=== PATIENT | male | born 1965 | race African-American/Black ===

== ENCOUNTER 2018-10-25 14:50 | Emergency (ER) | payer OTHER, SELFPAY ==
--- OUTSIDE RECORDS SUMMARY | 2018-10-25 14:52 | XMS REPORT | Continuity of Care Document ---
:1965 Author Organization Interface Problems Problem Status Onset Classification Date Comments Source Date Reported Corrosion of 04/05/20 08/12/2018 [facility] cornea and Medical conjunctival sac, Center right eye, initial encounter Chemical injury 01/24/20 08/12/2018 [facility] of eye [address] [place] [address] Center OBJECT IN EYE Active 01/23/[address] OBJECT IN EYE Active 01/23/[address] FOREIGN BODY IN Active 01/23/20 [facility] EYE [address] [place] [address] Corrosion of left 08/11/[address] [facility] eye and adnexa, [facility] part unspecified, initial encounter Toxic effect of 08/12/[address] [facility] corrosive alkalis [facility] and alkali-like [place] substances, Medical accidental , Center initial encounter Type 2 diabetes 08/12/2018 [facility] mellitus without Medical complications Center Medications Medication Details Route Status Patient Ordering Order Source Instructions Provider Date Ofloxacin 3 2 drp, No Longer [place] MG/ML Ophthalmic RIGHT EYE, Active 018 Medical Solution QID, X 7 Center day, # 5 ml, 0 Refill(s) Vitamin C 1000 1,000 mg=1 Active [place] mg oral tablet tab, PO, 018 Medical Daily, # 30 Center tab, 0 Refill(s) doxycycline 100 mg=1 No Longer [place] hyclate 100 MG cap, PO, Active 018 Medical Oral Capsule Q12H, X 10 Center day, # 20 cap, 0 Refill(s) prednisolone 1 drp, No Longer [place] acetate 10 MG/ML RIGHT EYE, Active 018 Medical Ophthalmic QID, X 10 Center Suspension [Pred day, # 5 Forte] ml, 0 Refill(s) 0.5 ML 0.5 mL, No Longer Bordetella Route: IM, Active 018 [facility] pertussis Drug Form: City filamentous SUSP, kg, hemagglutinin ONCE, STAT, vaccine, Start date: inactivated 0.01 01/22/18 MG/ML / 21:28:00 Bordetella CDT, Stop pertussis date: fimbriae 2/3 01/22/18 vaccine, 21:28:00 inactivated 0.01 CDTNotes: MG/ML / (Tdap ) For Bordetella Adolecent pertussis and Adult pertactin use For IM vaccine, Use. Same inactivated as: Adacel 0.006 MG/ML / (Tdap) Bordetella pertussis toxoid vacci Irrigation w/ 1,000 mL, No Longer Normal Saline Route: Each Active 018 [facility] Eye, Drug Form: SOLN, kg, ONCE, STAT, Start date: 01/22/18 21:28:00 CDT, Stop date: 01/22/18 21:28:00 CDT fluorescein 1 strip, No Longer ophthalmic 1 mg Route: LEFT Active 018 [facility] test EYE, ONCE, City Drug form: STRIP, Start date: 01/22/18 21:28:00 CDT, Stop date: 01/22/18 21:28:00 CDTNotes: Same as: FUL-VU Proparacaine 1 drp, No Longer hydrochloride 5 Route: LEFT Active 018 [facility] MG/ML Ophthalmic EYE, ONCE, [facility] Solution Drug form: SOLN, Start date: 01/22/18 21:28:00 CDT, Stop date: 01/22/18 21:28:00 CDTNotes: (Same as: Proparacain e) Sodium Chloride 1,000 mL, Inactive 0.9% (Bolus) IV 1000 ml/hr, [facility] Infuse [facility] Over: 1 hr, Route: IV, 1,000, Drug form: INJ, ONCE, Priority: STAT, kg, Start date: 01/22/18 21:28:00 CDT, Stop date: 01/22/18 21:28:00 CDT Irrigation w/ 1,000 mL, No Longer Normal Saline Route: Each Active 018 [facility] Eye, Drug Form: SOLN, kg, ONCE, Start date: 01/22/18 21:26:00 CDT, Stop date: 01/22/18 21:26:00 CDT Valium 5 mg, 1 Inactive tab, Route: 018 [facility] PO, Drug City form: TAB, ONCE, kg, Priority: STAT, Start date: 01/22/18 21:20:00 CDT, Stop date: 01/22/18 21:20:00 CDTNotes: (Same as: Valium) Acetaminophen 1 tab, Inactive 325 MG / Route: PO, 018 [facility] Hydrocodone Drug Form: City Bitartrate 5 MG TAB, kg, Oral Tablet ONCE, STAT, Start date: 01/22/18 21:15:00 CDT, Stop date: 01/22/18 21:15:00 CDTNotes: (Same as: [place] 325/5) Do not exceed 4gm/day of acetaminoph en. Allergies, Adverse Reactions, Alerts Substance Category Reaction Severity Reaction Status Date Comments Source type Reported Immunizations Immunization Date Given Site Status Last Updated Comments Source Results Order Results Value Reference Date Interpretation Comments Source Name Range Vital Signs Vital Sign Value Date Comments Source Temperature Oral (F) 98.4 F 01/23/2018 [facility] Heart Rate 86 01/23/2018 [facility] Respitory Rate 20 01/23/2018 [facility] Systolic (mm Hg) 146 01/23/2018 [facility] Diastolic (mm Hg) 80 01/23/2018 [facility] Respitory Rate 20 01/23/2018 [facility] Heart Rate 86 01/23/2018 [facility] Systolic (mm Hg) 163 01/23/2018 [facility] Diastolic (mm Hg) 104 01/23/2018 [facility] Heart Rate 88 01/23/2018 [facility] Respitory Rate 18 01/23/2018 [facility] Systolic (mm Hg) 160 01/23/2018 [facility] Diastolic (mm Hg) 100 01/23/2018 [facility] Heart Rate 84 01/23/2018 [facility] Systolic (mm Hg) 167 01/23/2018 [facility] Diastolic (mm Hg) 105 01/23/2018 [facility] Temperature Oral (F) 98.4 F 01/23/2018 [facility] Respitory Rate 18 01/23/2018 [facility] Encounters Location Location Encounter Encounter Reason Attending ADM DC Status Source Details Type Number For Provider Date Date [facility] [id number] Lucas 01/23 01/23 Pablo Guzman [facility] [id number] Franky Madera 01/23 01/23 NÉSTOR Shah /2017 [facility] Procedures Procedure Code Date Perfomer Comments Source
--- OUTSIDE RECORDS SUMMARY | 2018-10-25 14:53 | XMS REPORT | Summary of Care ---
:1965 Author Organization [facility] Address [address] [place] [id number]- Encounter HQ Marlene(FIN) [id number] Date(s): 01/22/18 - 01/22/18 [place] [address]- Encounter Diagnosis Toxic effect of corrosive alkalis and alkali-like substances, accidental ( unintentional), initial encounter (Final) - 01/27/18 Corrosion of left eye and adnexa, part unspecified, initial encounter (Final) - Discharge Disposition: Acute Care Attending Physician: Lucas Guzman MD Vital Signs Most recent to oldest 1 2 3 [Reference Range]: Temperature Oral [96.4-99.1 98.4 DegF DegF] (01/22/18 8:37 PM) Blood Pressure [90-140/60-90 163/104 mmHg 160/100 mmHg 167/105 mmHg mmHg] *HI* *HI* *HI* (01/22/18 10:00 PM) (01/22/18 9:00 PM) (01/22/18 8:37 PM) Respiratory Rate [14-20 BRMIN] 20 BRMIN 18 BRMIN 18 BRMIN (01/22/18 10:00 PM) (01/22/18 9:00 PM) (01/22/18 8:37 PM) Peripheral Pulse Rate [60-100 86 bpm 88 bpm 84 bpm bpm] (01/22/18 10:00 PM) (01/22/18 9:00 PM) (01/22/18 8:37 PM) Problem List No data available for this section Allergies, Adverse Reactions, Alerts Substance Reaction Severity Status NKDA Active Medications acetaminophen-hydrocodone 325 mg-5 mg oral tablet 1 tab, Route: PO, Drug Form: TAB, kg, ONCE, STAT, Start date: 01/22/18 21:15:00 CDT, Stop date: 01/22/18 21:15:00 CDT Notes: (Same as: [place] 325/5) Do not exceed 4gm/day of acetaminophen. Start Date: 01/22/18 Stop Date: 01/22/18 Status: Completedfluorescein ophthalmic 1 mg test 1 strip, Route: LEFT EYE, ONCE, Drug form: STRIP, Start date: 01/22/18 21:28:00 CDT, Stop date: 01/22/18 21:28:00 CDT Notes: Same as: FUL-VU Start Date: 01/22/18 Stop Date: 01/23/18 Status: CompletedIrrigation w/ Normal Saline 1,000 mL, Route: Each Affected Eye, Drug Form: SOLN, kg, ONCE, Start date: 01/22 21:26:00 CDT, Stop date: 01/22/18 21:26:00 CDT Start Date: 01/22/18 Stop Date: 01/23/18 Status: CompletedIrrigation w/ Normal Saline 1,000 mL, Route: Each Affected Eye, Drug Form: SOLN, kg, ONCE, STAT, Start date : 01/22/18 21:28:00 CDT, Stop date: 01/22/18 21:28:00 CDT Start Date: 01/22/18 Stop Date: 02/01/18 Status: Discontinuedproparacaine ophthalmic 0.5% solution 1 drp, Route: LEFT EYE, ONCE, Drug form: SOLN, Start date: 01/22/18 21:28:00 CDT , Stop date: 01/22/18 21:28:00 CDT Notes: (Same as: Proparacaine) Start Date: 01/22/18 Stop Date: 01/23/18 Status: CompletedSodium Chloride 0.9% (Bolus) IV 1,000 mL, 1000 ml/hr, Infuse Over: 1 hr, Route: IV, 1,000, Drug form: INJ, ONCE , Priority: STAT, kg,Start date: 01/22/18 21:28:00 CDT, Stop date: 01/22/18 21: 28:00 CDT Start Date: 01/22/18 Stop Date: 01/22/18 Status: Completedtetanus/diphth/pertussis (Tdap) adult/adol 5 units-2 units- 15.5 mcg/0.5 mL intramuscular suspension 0.5 mL, Route: IM, Drug Form: SUSP, kg, ONCE, STAT, Start date: 01/22/18 21:28: 00 CDT, Stop date: 01/22/18 21:28:00 CDT Notes: (Tdap ) For Adolecent and Adult use For IM Use. Same as: Adacel (Tdap) Start Date: 01/22/18 Stop Date: 02/01/18 Status: DiscontinuedValium 5 mg, 1 tab, Route: PO, Drug form: TAB, ONCE, kg, Priority: STAT, Start date: 21:20:00 CDT,Stop date: 01/22/18 21:20:00 CDT Notes: (Same as: Valium) Start Date: 01/22/18 Stop Date: 01/22/18 Status: Completed Results No data available for this section Immunizations No data available for this section Procedures No data available for this section Social History Social History Type Response Smoking Status Unknown if ever smoked; Exposure to Tobacco Smoke Unable to obtain; Cigarette Smoking Last 365 Days Unable to obtain; Reg Smoking Cessation Counseling No entered on: 01/22/18 Assessment and Plan No data available for this section
--- OUTSIDE RECORDS SUMMARY | 2018-10-25 14:53 | XMS REPORT | Summary of Care ---
:1965 Author Organization [facility] Address [address] [place] [id number]- Encounter HQ Violetta_carissa(FIN) [id number] Date(s): 01/22/18 - 01/23/[address] Professional Services provided by [facility] [place] [address]- Encounter Diagnosis Chemical injury of eye (Discharge Diagnosis) - 01/23/18 Corrosion of cornea and conjunctival sac, right eye, initial encounter (Final) - 04/04/18 Toxic effect of corrosive alkalis and alkali-like substances, accidental ( unintentional), initial encounter (Final) - Type 2 diabetes mellitus without complications (Final) - Discharge Disposition: Home or Self Care Attending Physician: Franky Madera MD Vital Signs Most recent to oldest [Reference Range]: 1 Temperature Oral [96.4-99.1 DegF] 98.4 DegF (01/22/18 11:18 PM) Blood Pressure [90-140/60-90 mmHg] 146/80 mmHg *HI* (01/22/18 11:18 PM) Respiratory Rate [14-20 BRMIN] 20 BRMIN (01/22/18 11:18 PM) Peripheral Pulse Rate [60-100 bpm] 86 bpm (01/22/18 11:18 PM) Problem List No data available for this section Allergies, Adverse Reactions, Alerts Substance Reaction Severity Status NKDA Active Medications doxycycline hyclate 100 mg oral capsule 100 mg=1 cap, PO, Q12H, X 10 day, # 20 cap, 0 Refill(s) Start Date: 01/23/18 Stop Date: 02/02/18 Status: Completedofloxacin ophthalmic 0.3% solution 2 drp, RIGHT EYE, QID, X 7 day, # 5 ml, 0 Refill(s) Start Date: 01/23/18 Stop Date: 01/30/18 Status: CompletedPred Forte 1% ophthalmic suspension 1 drp, RIGHT EYE, QID, X 10 day, # 5 ml, 0 Refill(s) Start Date: 01/23/18 Stop Date: 02/02/18 Status: CompletedVitamin C 1000 mg oral tablet 1,000 mg=1 tab, PO, Daily, # 30 tab, 0 Refill(s) Start Date: 01/23/18 Status: Ordered Results No data available for this section Immunizations No data available for this section Procedures No data available for this section Social History Social History Type Response Smoking Status Unknown if ever smoked; Exposure to Tobacco Smoke Unable to obtain; Cigarette Smoking Last 365 Days Unable to obtain; Reg Smoking Cessation Counseling No entered on: 01/22/18 Assessment and Plan Extracted from: Title: Ophthalmology Consult Note Author: Watson Altamirano MD Date: Ophthalmology Consultation Note Patient Name: Santy Silvestre MR#: [id number] Room: ED Trauma [facility]an Requesting Team: ED Date of Consult: 01/23/2018 Consulting Attending: Wilfredo Vallecillo MD Consulting Resident: Watson Altamirano MD Reason for Consult: Chemical burn to eye History of Present Illness: Pt is a 52 yo AAM with PMH of lifestyle controlled DM who presents to the ED after getting caustic soda onto his face at work due to a valve malfunction, with majority into right eye earlier today. He i mmediately washed both eyes with a large amount of water. He then presented to an outside ED and was transferred to . Here, pH was found to be slightly above 7 in right eye and he was continued to be flushed in the right eye with NS. Review of Systems: Constitutional Symptoms: no fever, weight changes. Eyes: as above Ears, Nose, Mouth, Throat: no rhinorrhea, hearing changes, or oral lesions. Cardiovascular: no chest pain Respiratory: No cough or shortness of breath. Gastrointestinal: no nausea, vomiting, diarrhea Genitourinary: no changes in UOP. Hematopoietic/Lymphatic: no easy bruising, LAD. Musculoskeletal: no generalized pain. Integumentary: no rash Neurological: no headache, weakness. Psychiatry: no behavioral change. Allergy/Immune system: No allergies. Past Ocular History: no previous diagnoses Past Medical History: no prior diagnosis Past Surgical History: no prior diagnosis Social History: No cigarette, alcohol, or drug use. Family History: No known ocular disease. Allergies: NKDA Medications (8) Active Scheduled Meds: None Unscheduled Meds: None PRN Meds: None One Time Meds (8): 01/22/18 (Completed) Sodium Chloride 0.9% IV (Sodium Chloride 0.9% (Bolus) IV ) 1,000 mL IV ONCE 1000 ml/hr 01/22/18 (Completed) acetaminophen-hydrocodone (acetaminophen-hydrocodone 325 mg-5 mg oral tablet) 1 tab PO ONCE 01/22/18 (Completed) diazepam (Valium) 5 mg PO ONCE 01/22/18 (Ordered) fluorescein ophthalmic (fluorescein ophthalmic 1 mg test) 1 strip LEFT EYE ONCE 01/22/18 (Ordered) proparacaine ophthalmic (proparacaine ophthalmic 0.5% solution) 1 drp LEFT EYE ONCE 01/22/18 (Ordered) sodium chloride (Irrigation w/ Normal Saline) 1,000 mL Each Affected Eye ONCE 01/22/18 (Ordered) sodium chloride (Irrigation w/ Normal Saline) 1,000 mL Each Affected Eye ONCE 01/22/18 (Ordered) tetanus/diphth/pertuss (Tdap) adult/adol (tetanus/diphth/ pertussis (Tdap) adult/adol 5 units-2 units-15.5 mcg/0.5 mL intramuscular suspension) 0.5 mL IM ONCE Continuous Infusions: None Eye Medication: none Examination: Neuro/MS: Patient is alert and oriented to person, place, and time. Mental status is grossly normal. Visual Acuity (without correction) Tested on a Near Card: Right Eye: 20/40 PH 20/25 Left Eye: 20/30 PH 20/20 Confrontation Visual Field: Full both eyes. Extraocular motility: Full both eyes. Pupils: 2->1 mm in both eyes with normal direct and consensual response. No afferent pupillary defect noted. Intraocular Pressure: Symmetric and normal to palpation both eyes. Right eye 14 , Left eye 15 using the Tonopen. External: Within normal limits both eyes. SLIT LAMP: Lids/Lashes/Lacrimals: Mild upper and lower lid edema right eye. Within normal limits left eye Conjunctiva/Sclera: Right eye with 2+ hyperemia throughout with slightly more clear area superiorly. 1 mm lisamine green uptake at 7 o'clock 3 mm from limbus and 1mm uptake at limbus at 8o'clock. LE with 1+ hyperemia, no lisamine green uptake Cornea: Clear both eyes. Right: Fluorescein uptake right eye in wedge from 6 - 830 to inferior paracentral. Left: No uptake Anterior Chamber: right: 2+ flare Left: Deep and quiet Iris: Round and reactive both eyes. Lens: Clear both eyes. Dilated Fundus Exam (Both eyes dilated with tropicamide 1% @0130): (65093) Optic Nerve: pink, sharp margins, flat both eyes C:D Ratio: 0.2 both eyes Posterior Segment: macula, vessels, periphery within normal limits both eyes Imaging: None Procedures Performed: None Diagnoses/Recommendation: 1. Alkali burn, Right eye (T26.11XA) 2. 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 Diabetes mellitus without retinopathy (E11.9) Return precautions reviewed Please call if any changes develop. Please call for an appointment to follow-up with [facility] in 1 week. (Located: [address] [place] [address]. [facility] Floor, ) Watson Altamirano M.D. Ophthalmology Resident PGY-2 Pager #: [phone] I carefully reviewed the medical record, discussed the case with the resident, and agree with the assessment and plan. Wilfredo Vallecillo M.D.
--- NOTE | 2018-10-25 16:35 | ER ---
Nurse's Notes [facility] Name: Santy Silvestre Jr Age: 53 yrs Sex: Male : 1965 Arrival Date: 10/25/2018 Time: 14:53 Bed 18 Private MD: Diagnosis: Muscle spasm;Torticollis Presentation: 10/25 14:56 Presenting complaint: Patient states: "I slept wrong and my neck hurt yesterday morning lp1 but it's even worse today"; Pain on movement, radiates to right shoulder blade. Transition of care: patient was not received from another setting of care. Onset of symptoms was October 25, 2018. Risk Assessment: Do you want to hurt yourself or someone else? Patient reports no desire to harm self or others. Care prior to arrival: None. 14:56 Method Of Arrival: Ambulatory lp1 14:56 Acuity: RICKY 4 lp1 14:58 Initial Sepsis Screen: Does the patient meet any 2 criteria? No. Patient's initial lp1 sepsis screen is negative. Does the patient have a suspected source of infection? No. Patient's initial sepsis screen is negative. Note Took Motrin about 1 hour ago. Historical: - Allergies: 14:58 No Known Allergies; lp1 - Home Meds: 14:58 None [Active]; lp1 - PMHx: 14:58 Diabetes - NIDDM; lp1 - PSHx: 14:58 Knee surgery; shoulder surgery; lp1 - Immunization history:: Adult Immunizations up to date. - Social history:: Smoking status: Patient/guardian denies using tobacco. - Ebola Screening: : No symptoms or risks identified at this time. - Family history:: not pertinent. - Hospitalizations: : No recent hospitalization is reported. Screenin:00 Abuse screen: Denies threats or abuse. Denies injuries from another. Nutritional lp1 screening: No deficits noted. Tuberculosis screening: No symptoms or risk factors identified. Fall Risk None identified. Assessment: 15:30 General: Appears in no apparent distress. uncomfortable, Behavior is calm, cooperative, ph appropriate for age, Denies fever, feeling ill. Pain: Complains of pain in right posterior aspect of neck and right lateral aspect of neck Pain radiates to right trapezius. Neuro: Level of Consciousness is awake, alert, obeys commands, Oriented to person, place, time, situation, Denies paresthesias numbness. Cardiovascular: Capillary refill < 3 seconds in bilateral fingers Patient's skin is warm and dry. Respiratory: Airway is patent Respiratory effort is even, unlabored, Respiratory pattern is regular, symmetrical. GI: No signs and/or symptoms were reported involving the gastrointestinal system. Derm: Skin is intact, is healthy with good turgor, Skin is pink, warm \\T\\ dry. Musculoskeletal: Circulation, motion, and sensation intact. Range of motion: intact in all extremities. Vital Signs: 14:58 BP 155 / 89; Pulse 67; Resp 18; Temp 99(TE); Pulse Ox 96% on R/A; Weight 104.33 kg (R); lp1 Height 5 ft. 6 in. (167.64 cm); Pain 8/10; 14:58 Body Mass Index 37.12 (104.33 kg, 167.64 cm) lp1 ED Course: 14:53 Patient arrived in ED. rg4 14:57 Triage completed. lp1 14:57 Arm band placed on right wrist. lp1 15:10 Lexi Rowan RN is Primary Nurse. ph 15:16 Kennedy Rawls MD is Attending Physician. rn 15:30 Patient has correct armband on for positive identification. Bed in low position. Call ph light in reach. Side rails up X 1. 15:30 No provider procedures requiring assistance completed. Patient did not have IV access ph during this emergency room visit. Administered Medications: No medications were administered Outcome: 15:26 Discharge ordered by . rn 15:36 Patient left the ED. ph 15:36 Discharged to home ambulatory. ph 15:36 Condition: good 15:36 Discharge instructions given to patient, Instructed on discharge instructions, follow up and referral plans. medication usage, Demonstrated understanding of instructions, follow-up care, medications, Prescriptions given X 2. Signatures: Kennedy Rawls MD MD rn Pena, Laura, RN RN lp1 Lexi Rowan RN RN ph Garcia, Rubi rg4 Corrections: (The following items were deleted from the chart) 15:00 14:58 Pulse 67bpm; Resp 18bpm; Pulse Ox 96% RA; Temp 99F Temporal; 104.33 kg Reported; lp1 Height 5 ft. 6 in.; BMI: 37.1; Pain 8/10; lp1
--- NOTE | 2018-10-25 16:35 | EDPHYS ---
Physician Documentation [facility] Name: Santy Silvestre Jr Age: 53 yrs Sex: Male : 1965 Arrival Date: 10/25/2018 Time: 14:53 Bed 18 Private MD: ED Physician Kennedy Rawls HPI: 10/25 15:21 This 53 yrs old Black Male presents to ER via Ambulatory with complaints of Neck Pain, rn <24hrs Old. 15:21 This 53 yrs old Black Male presents to ER via Ambulatory with complaints of Neck Pain, rn <24hrs Old. 15:21 The patient or guardian complains of pain, that is acute. The symptoms are located on rn the right lateral neck. Onset: The symptoms/episode began/occurred 2 day(s) ago. Context: The problem was sustained at home, The neck injury/problem resulted from sleeping funny. The pain radiates to the right shoulder. Modifying factors: The symptoms are alleviated by nothing. the symptoms are aggravated by movement. Severity of symptoms: At their worst the symptoms were moderate, in the emergency department the symptoms are unchanged. The patient has not experienced similar symptoms in the past. Reports right lateral neck pain, began yesterday, reports for unknown reason sleeping with vertical pillow orientation, woke up with right neck pain that shoots to right shoulder, no trauma, no weakness/numbness of arms/legs, no chest pain, hurts to move neck, no fever/vomiting.. Historical: - Allergies: 14:58 No Known Allergies; lp1 - Home Meds: 14:58 None [Active]; lp1 - PMHx: 14:58 Diabetes - NIDDM; lp1 - PSHx: 14:58 Knee surgery; shoulder surgery; lp1 - Immunization history:: Adult Immunizations up to date. - Social history:: Smoking status: Patient/guardian denies using tobacco. - Ebola Screening: : No symptoms or risks identified at this time. - Family history:: not pertinent. - Hospitalizations: : No recent hospitalization is reported. ROS: 15:21 Constitutional: Negative for fever, chills, and weight loss, Eyes: Negative for injury, rn pain, redness, and discharge, Neck: + right lateral neck pain, negative for swelling or trauma Cardiovascular: Negative for chest pain, palpitations, and edema, Respiratory: Negative for shortness of breath, cough, wheezing, and pleuritic chest pain, Abdomen/GI: Negative for abdominal pain, nausea, vomiting, diarrhea, and constipation, MS/Extremity: Negative for injury and deformity, Skin: Negative for injury, rash, and discoloration, Neuro: Negative for headache, weakness, numbness, tingling, and seizure. Exam: 15:21 Constitutional: This is a well developed, well nourished patient who is awake, alert, rn and in no acute distress. Legs crossed and on phone. Head/Face: Normocephalic, atraumatic. Eyes: Pupils equal round and reactive to light, extra-ocular motions intact. Lids and lashes normal. Conjunctiva and sclera are non-icteric and not injected. Cornea within normal limits. Periorbital areas with no swelling, redness, or edema. Neck: Trachea midline, no thyromegaly or masses palpated, and no cervical lymphadenopathy. No meningismus, + tender right pericervical region and right trapezius, no swelling. MS/ Extremity: Pulses equal, no cyanosis. Neurovascular intact. Full, normal range of motion. Equal circumference. Vital Signs: 14:58 BP 155 / 89; Pulse 67; Resp 18; Temp 99(TE); Pulse Ox 96% on R/A; Weight 104.33 kg (R); lp1 Height 5 ft. 6 in. (167.64 cm); Pain 8/10; 14:58 Body Mass Index 37.12 (104.33 kg, 167.64 cm) lp1 MDM: 15:16 Patient medically screened. rn 15:21 Differential diagnosis: arthritis, cervical strain, torticollis. Data reviewed: vital rn signs, nurses notes, and as a result, I will discharge patient. Counseling: I had a detailed discussion with the patient and/or guardian regarding: the historical points, exam findings, and any diagnostic results supporting the discharge/admit diagnosis, the need for outpatient follow up, to return to the emergency department if symptoms worsen or persist or if there are any questions or concerns that arise at home. Special discussion: I discussed with the patient/guardian in detail that at this point there is no indication for admission to the hospital. It is understood, however, that if the symptoms persist or worsen the patient needs to return immediately for re-evaluation. Administered Medications: No medications were administered Disposition: 10/25/18 15:26 Discharged to Home. Impression: Muscle spasm, Torticollis. - Condition is Stable. - Discharge Instructions: Acute Torticollis, Adult, Neck Exercises. - Prescriptions for Ultram 50 mg Oral Tablet - take 1 tablet by ORAL route every 6 hours As needed; 15 tablet. Cyclobenzaprine 10 mg Oral Tablet - take 1 tablet by ORAL route every 8 hours As needed; 20 tablet. - Medication Reconciliation Form, Thank You Letter, Antibiotic Education, Prescription Opioid Use, Work release form form. - Follow up: Private Physician; When: As needed; Reason: Recheck today's complaints, Re-evaluation by your physician. - Problem is new. - Symptoms have improved. Signatures: Kennedy Rawls MD MD rn EscobarMelani RN RN lp1 Lexi Rowan RN RN ph Corrections: (The following items were deleted from the chart) 15:36 15:26 10/25/2018 15:26 Discharged to Home. Impression: Muscle spasm; Torticollis. ph Condition is Stable. Forms are Medication Reconciliation Form, Thank You Letter, Antibiotic Education, Prescription Opioid Use. Follow up: Private Physician; When: As needed; Reason: Recheck today's complaints, Re-evaluation by your physician. Problem is new. Symptoms have improved. rn
== END 2018-10-25 15:36 | disposition home or self-care (01) ==
LOC: ER 14:50
DX: M62.838 Other muscle spasm (principal); M43.6 Torticollis; E11.9 Type 2 diabetes mellitus without complications
CPT/HCPCS: 99282

== ENCOUNTER 2021-08-24 11:16 | Observation (INO) | payer SELFPAY ==
--- OUTSIDE RECORDS SUMMARY | 2021-08-24 11:19 | XMS REPORT | Continuity of Care Document ---
:1965 Author Organization [facility] t Address [address] [place] [address] Care Team Providers Name Role Phone Unavailable Unavailable Unavailable Problems This patient has no known problems. Allergies, Adverse Reactions, Alerts This patient has no known allergies or adverse reactions. Medications This patient has no known medications. Procedures This patient has no known procedures. Encounters Start End Encounter Admission Attending Care Care Encounter Source Date/Time Date/Time Type Type Clinicians Facility Department ID 2018-01-22 2018-01-22 Emergency E [facility] [id number] 20:34:00 20:34:00 vinay mclean [facility] Results This patient has no known results.
[2021-08-24 11:48] LABS: Absolute Lymphocytes (CBC) 1.1 K/uL (0.7-4.9); Hematocrit 40.2 % (39.6-49.0); Lymphocytes % 25.9 % (15.3-44.8); MPV 9.1 fL (7.6-11.3)
[2021-08-24 11:58] LABS: BUN Blood Urea Nitrogen 9 mg/dL (7-18); Bicarbonate 26 mmol/L (21-32); Glucose Level 111 mg/dL (74-106); Potassium 4.5 mmol/L (3.5-5.1); Sodium Level 138 mmol/L (136-145); Troponin High Sensitivity 14.1 pg/mL (<58.9)
--- NOTE | 2021-08-24 12:31 | ER ---
Nurse's Notes [facility] Name: Santy Silvestre Jr Age: 56 yrs Sex: Male : 1965 Arrival Date: 08/24/2021 Time: 11:18 Bed 26 Private MD: Diagnosis: Chest pain, unspecified Presentation: 08/24 11:18 Chief complaint: Patient states: was up on lift at [employer] , got SOB and had some iw chest pain, got himself down and pain came back when he was walking, EMS gave 2 sprays of Nitro, relieved pain and SOB. Coronavirus screen: At this time, the client does not indicate any symptoms associated with coronavirus-19. Ebola Screen: Patient negative for fever greater than or equal to 101.5 degrees Fahrenheit, and additional compatible Ebola Virus Disease symptoms Patient denies exposure to infectious person. Patient denies travel to an Ebola-affected area in the 21 days before illness onset. No symptoms or risks identified at this time. Initial Sepsis Screen: Does the patient meet any 2 criteria? No. Patient's initial sepsis screen is negative. Does the patient have a suspected source of infection? No. Patient's initial sepsis screen is negative. Risk Assessment: Do you want to hurt yourself or someone else? Patient reports no desire to harm self or others. Onset of symptoms was August 24, 2021. Care prior to arrival: IV initiated. 20 GA, in the left antecubital area. 11:18 Method Of Arrival: EMS: [facility] 11:18 Acuity: RICKY 3 11:21 Care prior to arrival: Medication(s) given: ASA, 81 mg, x 4, Nitroglycerin, x 2. iw Triage Assessment: 12:09 General: Appears in no apparent distress. comfortable, Behavior is calm, cooperative, bp appropriate for age. Pain: Complains of pain in chest. EENT: No deficits noted. Neuro: No deficits noted. Cardiovascular: Rhythm is sinus rhythm. Respiratory: No deficits noted. GI: No signs and/or symptoms were reported involving the gastrointestinal system. : No signs and/or symptoms were reported regarding the genitourinary system. Derm: No deficits noted. Musculoskeletal: No deficits noted. Historical: - Allergies: 11:20 No Known Allergies; iw - Home Meds: 11:20 None [Active]; iw - PMHx: 11:20 Diabetes - NIDDM; iw Screenin:10 Abuse screen: Denies threats or abuse. Denies injuries from another. Nutritional bp screening: No deficits noted. Tuberculosis screening: No symptoms or risk factors identified. Fall Risk None identified. Assessment: 11:29 Reassessment: pt seen by Dr. Pickering on EMS stretcher, protocol orders placed, EKG iw NSR, pt denies CP at this time. General: Appears in no apparent distress. Behavior is calm, cooperative. Pain: Denies pain. Neuro: Level of Consciousness is awake, alert, obeys commands. 12:30 Reassessment: ADMIT INITIATED. bp 13:30 Reassessment: No changes from previously documented assessment. Patient and/or family bp updated on plan of care and expected duration. Pain level reassessed. 14:30 Reassessment: ADMIT IN PROCESS. bp 15:11 Reassessment: PT STATES ACUTE INCREASE CP, PROVIDER NOTIFIED. bp Vital Signs: 11:18 BP 145 / 86; Pulse 78; Resp 16 S; Pulse Ox 96% on R/A; Weight 108.86 kg; Height 5 ft. 6 bp in. (167.64 cm); 12:30 BP 125 / 88; Pulse 71; Resp 18; Pulse Ox 97% ; bp 13:30 BP 125 / 82; Pulse 70; Resp 18; Pulse Ox 99% ; bp 14:30 BP 126 / 82; Pulse 71; Resp 19; Pulse Ox 97% ; bp 15:30 BP 123 / 87; Pulse 78; Resp 25; Pulse Ox 94% ; bp 11:18 Body Mass Index 38.74 (108.86 kg, 167.64 cm) bp ED Course: 11:18 Patient arrived in ED. iw 11:20 Triage completed. iw 11:20 Arm band placed on. iw 11:26 EKG done, by ED staff, reviewed by Baudilio Pickering MD. em1 11:29 Maintain EMS IV. Dressing intact. Good blood return noted. Site clean \T\ dry. Gauge \T\ iw site: 20 LAC. 12:08 [facility]C [facility]. la1 12:08 Baudilio Pickering MD is Attending Physician. la1 12:08 Manuel Marcus, MARIAH is Primary Nurse. bp 12:10 Patient has correct armband on for positive identification. Bed in low position. Call bp light in reach. Side rails up X2. service promoter salesperson on. Pulse ox on. NIBP on. 12:10 Patient maintains SpO2 saturation greater than 95% on room air. bp 12:30 Keila Kuntson MD is Hospitalizing Provider. la1 13:12 XRAY Chest (1 view) In Process Unspecified. EDMS 15:16 EKG done, by ED staff, reviewed by Avel GALEANO. 3 Administered Medications: 15:11 Drug: Nitroglycerin 0.4 mg Route: Sublingual; bp 15:26 Follow up: Response: Pain is decreased bp 15:20 Drug: morphine 2 mg Route: IVP; Site: left antecubital; bp 15:26 Follow up: Response: No adverse reaction; Pain is decreased bp 15:22 CANCELLED (Other Intervention Used): Lovenox (enoxaparin) 1 mg/kg Sub-Q once la1 15:30 Drug: Heparin ([place]-Bolus No thrombolytic) - HEParin 60 units/kg {Co-Signature: aa5 bp (Bibi Zambrano RN).} Route: IVP; Site: left antecubital; 15:50 Follow up: Response: No adverse reaction bp 15:30 Drug: Heparin ([place] Drip) 12 units/kg/hr - (HEParin 11942 units, D5W 500 ml) bp {Co-Signature: aa5 (Bibi Zambrano RN).} Route: IV; Rate: calculated rate; Site: left antecubital; 15:40 Drug: morphine 2 mg Route: IVP; Site: left antecubital; bp 15:50 Follow up: Response: Pain is decreased bp 17:29 Drug: GI Cocktail without - (Maalox Suspension 30 ml, Lidocaine Liquid 2 % 15 bp ml) Route: PO; 19:49 Follow up: Response: No adverse reaction lg3 Outcome: 12:30 Decision to Hospitalize by Provider. la1 08/25 11:04 Patient left the ED. jd3 Signatures: Dispatcher [employer] EDMS Bryanna Ochoa RN RN iw Martinez, Eric 1 Avel Botello FNP-C FNP-Felicity Mchugh 3 Sincere Quiros RN RN jManuel Reyna RN RN bp Gibson, Lacie, MARIAH RN lg3 Bibi Zambrano RN aa5 Corrections: (The following items were deleted from the chart) 08/24 15:25 11:18 BP 145 / 86; Pulse 78bpm; Resp 16bpm; Spontaneous; Pulse Ox 96% RA; iw bp
--- NOTE | 2021-08-24 12:31 | EDPHYS ---
Physician Documentation [facility] Name: Santy Silvestre Jr Age: 56 yrs Sex: Male : 1965 Arrival Date: 08/24/2021 Time: 11:18 Bed 26 Private MD: ED Physician Baudilio Pickering HPI: 08/24 12:26 This 56 yrs old Black Male presents to ER via EMS with complaints of Chest Pain, la1 Shortness Of Breath. 12:26 Onset: The symptoms/episode began/occurred just prior to arrival. Associated signs and la1 symptoms: Pertinent positives: chest pain, SOB, lightheadedness. Modifying factors: The patient symptoms are alleviated by nitro, the patient symptoms are aggravated by exertion. The patient has not experienced similar symptoms in the past. The patient has not recently seen a physician. Patient reports he was at work when he had onset of chest tightness associated with shortness of breath, pain was better when resting but worse when he began walking again, was evaluated by EMS and given nitroglycerin and aspirin, patient reports significant relief with nitroglycerin. Denies previous cardiac evaluation does have family history of CAD.. Historical: - Allergies: 11:20 No Known Allergies; iw - Home Meds: 11:20 None [Active]; iw - PMHx: 11:20 Diabetes - NIDDM; iw ROS: 12:28 Constitutional: Negative for fever, chills, and weight loss, Eyes: Negative for injury, la1 pain, redness, and discharge, ENT: Negative for injury, pain, and discharge, Neck: Negative for injury, pain, and swelling. 12:28 Abdomen/GI: Negative for abdominal pain, nausea, vomiting, diarrhea, and constipation, Back: Negative for injury and pain, MS/Extremity: Negative for injury and deformity, Skin: Negative for injury, rash, and discoloration, Neuro: Negative for headache, weakness, numbness, tingling, and seizure. 12:28 Cardiovascular: Positive for chest pain. 12:28 Respiratory: Positive for shortness of breath. Exam: 12:28 Constitutional: This is a well developed, well nourished patient who is awake, alert, la1 and in no acute distress. Head/Face: Normocephalic, atraumatic. Chest/axilla: Normal chest wall appearance and motion. Nontender with no deformity. No lesions are appreciated. Cardiovascular: Regular rate and rhythm with a normal S1 and S2. No gallops, murmurs, or rubs. Normal PMI, no JVD. No pulse deficits. Respiratory: Lungs have equal breath sounds bilaterally, clear to auscultation and percussion. Abdomen/GI: Soft, non-tender, with normal bowel sounds. No distension or tympany. No guarding or rebound. No evidence of tenderness throughout. Skin: Warm, dry with normal turgor. Normal color with no rashes, no lesions, and no evidence of cellulitis. MS/ Extremity: Pulses equal, no cyanosis. Neurovascular intact. Full, normal range of motion. Neuro: Awake and alert, GCS 15, oriented to person, place, time, and situation. Vital Signs: 11:18 BP 145 / 86; Pulse 78; Resp 16 S; Pulse Ox 96% on R/A; Weight 108.86 kg; Height 5 ft. 6 bp in. (167.64 cm); 12:30 BP 125 / 88; Pulse 71; Resp 18; Pulse Ox 97% ; bp 13:30 BP 125 / 82; Pulse 70; Resp 18; Pulse Ox 99% ; bp 14:30 BP 126 / 82; Pulse 71; Resp 19; Pulse Ox 97% ; bp 15:30 BP 123 / 87; Pulse 78; Resp 25; Pulse Ox 94% ; bp 11:18 Body Mass Index 38.74 (108.86 kg, 167.64 cm) bp MDM: 12:08 Patient medically screened. la1 12:29 Data reviewed: vital signs, nurses notes, EKG, radiologic studies, I have discussed the la1 patient's presentation/case with the attending Emergency Department Physician; and as a result, I will admit patient. Data interpreted: Pulse oximetry: is not applicable for this patient encounter. on is 96 %. Interpretation: normal. Counseling: I had a detailed discussion with the patient and/or guardian regarding: the historical points, exam findings, and any diagnostic results supporting the discharge/admit diagnosis, lab results, radiology results, the need for further work-up and treatment in the hospital. Special discussion:. 08/24 11:21 Order name: Basic Metabolic Panel; Complete Time: 12:08 iw 08/24 11:21 Order name: CBC with Diff; Complete Time: 12:08 iw 08/24 11:21 Order name: Troponin HS; Complete Time: 12:08 iw 08/24 12:18 Order name: SARS-COV-2 RT PCR (Document "Date of Onset" if Symptomatic); Complete Time: iw 16:08/24 15:27 Order name: Basic Metabolic Panel EDMS 08/24 15:27 Order name: Basic Metabolic Panel EDMS 08/24 15:27 Order name: CBC with Automated Diff EDMS 08/24 15:27 Order name: CBC with Automated Diff EDMS 08/24 15:27 Order name: Lipid Profile EDMS 08/24 15:27 Order name: Lipid Profile EDMS 08/24 15:27 Order name: Troponin High Sensitivity; Complete Time: 22:03 EDMS 08/24 15:27 Order name: Troponin High Sensitivity EDMS 08/24 15:27 Order name: Troponin High Sensitivity EDMS 08/24 15:27 Order name: Troponin High Sensitivity EDMS 08/24 11:21 Order name: XRAY Chest (1 view); Complete Time: 15:08 iw 08/24 11:21 Order name: EKG; Complete Time: 11: iw 08/24 11:21 Order name: Cardiac monitoring; Complete Time: 12:09 iw 08/24 14:27 Order name: Diet Heart Healthy; Complete Time: 14:28 iw 08/24 15:08 Order name: EKG; Complete Time: 15:09 ryder 08/24 15:27 Order name: CONS Physician Consult EDAL 08/24 15:27 Order name: Echo with Doppler EDMS 08/24 15:27 Order name: EKG Electrocardiogram EDAL 08/24 15:27 Order name: EKG Electrocardiogram EDAL 08/24 11:21 Order name: EKG - Nurse/Tech; Complete Time: 11:26 iw 08/24 11:21 Order name: IV Saline Lock; Complete Time: 11: iw 08/24 11:21 Order name: Labs collected and sent; Complete Time: 11: iw 08/24 11:21 Order name: O2 Per Protocol; Complete Time: 12:09 iw 08/24 11:21 Order name: O2 Sat Monitoring; Complete Time: 12:09 iw 08/24 15:08 Order name: EKG - Nurse/Tech; Complete Time: 15:14 ryder Administered Medications: 15:11 Drug: Nitroglycerin 0.4 mg Route: Sublingual; bp 15:26 Follow up: Response: Pain is decreased bp 15:20 Drug: morphine 2 mg Route: IVP; Site: left antecubital; bp 15:26 Follow up: Response: No adverse reaction; Pain is decreased bp 15:22 CANCELLED (Other Intervention Used): Lovenox (enoxaparin) 1 mg/kg Sub-Q once la1 15:30 Drug: Heparin ([place]-Bolus No thrombolytic) - HEParin 60 units/kg {Co-Signature: aa5 bp (Bibi Zambrano RN).} Route: IVP; Site: left antecubital; 15:50 Follow up: Response: No adverse reaction bp 15:30 Drug: Heparin ([place] Drip) 12 units/kg/hr - (HEParin 79939 units, D5W 500 ml) bp {Co-Signature: aa5 (Bibi Zambrano RN).} Route: IV; Rate: calculated rate; Site: left antecubital; 15:40 Drug: morphine 2 mg Route: IVP; Site: left antecubital; bp 15:50 Follow up: Response: Pain is decreased bp 17:29 Drug: GI Cocktail without - (Maalox Suspension 30 ml, Lidocaine Liquid 2 % 15 bp ml) Route: PO; 19:49 Follow up: Response: No adverse reaction lg3 Disposition: 08/26 07:53 Co-signature as Attending Physician, Baudilio Pickering MD I agree with the assessment and ryder plan of care. Disposition Summary: 08/24/21 12:30 Hospitalization Ordered Hospitalization Status: Observation la1 Provider: Keila Knutson laTorito Condition: Stable la1 Problem: new la1 Symptoms: have improved la1 Bed/Room Type: Standard la1 Location: Telemetry/MedSurg (observation)(08/25/21 10:40) em1 Room Assignment: 218(08/25/21 10:40) em1 Diagnosis - Chest pain, unspecified la1 Forms: - Medication Reconciliation Form la1 - SBAR form la1 Signatures: Dispatcher [employer] Baudilio Hoyos MD MD cha Williams, Irene, RN Wai Morgan em1 Avel Botello, CHRISTINA-C POLYGRAPH EXAMINER-Cla1 Manuel Marcus RN RN bp Ilene Duran RN lg3 Bibi Zambrano RN aa5 Corrections: (The following items were deleted from the chart) 08/24 15:22 15:18 Lovenox (enoxaparin) 1 mg/kg Sub-Q once ordered. la1 la1 16:49 12:30 Telemetry/MedSurg (observation) la 16:49 12:30 la1 iw 08/25 10:40 08/24 16:[address] [facility] ER HOLD iw em1 08/25 10:40 08/24 16:49 ERHOLD- iw em1
--- NOTE | 2021-08-24 13:19 | RAD REPORT ---
EXAM DESCRIPTION: Loren Single View08/24/2021 1:09 pm CLINICAL HISTORY: Chest pain COMPARISON: none FINDINGS: The lungs appear clear of acute infiltrate. The heart is borderline enlarged IMPRESSION: No acute abnormalities displayed
[2021-08-24] MEDS ORDERED: NITROGLYCERIN 0.4 MG/TAB SL ONE (15:13)
[2021-08-24] MEDS ORDERED: MORPHINE 4 MG/ML SYR IV PRN (15:21)
[2021-08-24] MEDS ORDERED: ACETAMINOPHEN 500 MG TAB PO PRN (15:21)
[2021-08-24] MEDS ORDERED: ALPRAZOLAM 0.25 MG TABLET PO PRN (15:21)
[2021-08-24] MEDS ORDERED: MORPHINE 2 MG/ML SYR ONE ×2 (15:23→15:42)
[2021-08-24] MEDS ORDERED: HEPARIN 5000 UNIT/ML 1 ML VIAL ONE (15:41)
[2021-08-24] MEDS ORDERED: HEPARIN/D5W 25,000 UNIT/500 ML BAG IV ONE (15:42)
[2021-08-24] MEDS ORDERED: LIDOCAINE VISCOUS 2% SOLN 15 ML UDC ONE (17:27)
[2021-08-24] MEDS ORDERED: MAGNES/ALUMIN/SIMET 30ML UCUP ONE (17:27)
[2021-08-24] MEDS ORDERED: ONDANSETRON 4 MG/2 ML VIAL ONE (19:00)
[2021-08-24] MEDS ORDERED: METOPROLOL TAR 50 MG TAB ONE (21:16)
[2021-08-24] MEDS: METOPROLOL TAR 50 MG TAB PO SCH (21:19)
[2021-08-25 03:38] LABS: Absolute Lymphocytes (CBC) 1.5 K/uL (0.7-4.9); Hematocrit 40.2 % (39.6-49.0); Lymphocytes % 15.8 % (15.3-44.8); MPV 9.4 fL (7.6-11.3); RBC Red Blood Cell Count 5.18 M/uL (4.33-5.43)
[2021-08-25 03:49] LABS: BUN Blood Urea Nitrogen 8 mg/dL (7-18); Bicarbonate 28 mmol/L (21-32); Glucose Level 99 mg/dL (74-106); HDL Cholesterol 46 mg/dL (40-60); LDL Cholesterol, Calculated 116 mg/dL (<130); Potassium 4.9 mmol/L (3.5-5.1); Sodium Level 138 mmol/L (136-145); Troponin High Sensitivity 11.1 pg/mL (<58.9)
[2021-08-25 04:59] VITALS: O2SAT 98
--- NOTE | 2021-08-25 07:04 | P.HP ---
Certification for Inpatient Patient admitted to: Observation With expected LOS: <2 Midnights Patient will require the following post-hospital care: None Practitioner: I am a practitioner with admitting privileges, knowledge of patient current condition, hospital course, and medical plan of care. Services: Services provided to patient in accordance with Admission requirements found in Title 42 Section 412.3 of the Code of Federal Regulations Patient History Date of Service: 08/24/21 Reason for admission: Rule out acute coronary syndrome History of Present Illness: Patient is a 56-year-old gentleman who came into the hospital with chest discomfort. Pain was mainly in the epigastric and sternal region. There was no radiation to the chest pain. Patient states that he did not have diaphoresis. He was not nauseated. No vomiting. Patient was not short of breath. The states that they had a large meal and they were both left with a lot of gas. She believes he is bloated. However, he does have a strong family history of cardiac disease. Patient has hyperlipidemia and diabetes. His blood sugar is poorly controlled. He states he takes cholesterol medicine. He will be admitted to the hospital for further evaluation. Allergies No Known Allergies Allergy (Unverified 08/24/21 16:29) Home Medications: NK [No Home Meds] 08/24/21 - Past Medical/Surgical History Has patient received pneumonia vaccine in the past: No Diabetic: Yes -: diabetes -: Hyperlipidemia Past Surgical History: Patient denies surgical history - Family History Father Family History: Reviewed- Non-Contributory - Social History Smoking Status: Unknown if ever smoked Alcohol use: No CD- Drugs: No Place of Residence: Home Review of Systems 10-point ROS is otherwise unremarkable Physical Examination - Vital Signs Temperature: 98.6 F Blood Pressure: 121/75 Pulse: 81 Respirations: 19 Pulse Ox (%): 98 - Physical Exam General: Alert, In no apparent distress, Oriented x3 HEENT: Atraumatic, PERRLA, Mucous membr. moist/pink, EOMI, Sclerae nonicteric Neck: Supple, 2+ carotid pulse no bruit, No LAD, Without JVD or thyroid abnormality Respiratory: Clear to auscultation bilaterally, Normal air movement Cardiovascular: Regular rate/rhythm, Normal S1 S2, No murmurs Gastrointestinal: Normal bowel sounds, Soft and benign, Non-distended, No tenderness Musculoskeletal: No clubbing, No swelling, No tenderness Integumentary: No rashes Neurological: Normal gait, Normal speech, Normal strength at 5/5 x4 extr, Normal tone, Sensation intact, Cranial nerves 3-12 intact, Normal affect Lymphatics: No axilla or inguinal lymphadenopathy - Studies Laboratory Data (last 24 hrs) 08/24/21 11:25: WBC 4.1 L, Hgb 13.2 L, Hct 40.2, Plt Count 274 08/24/21 11:25: Sodium 138, Potassium 4.5, BUN 9, Creatinine 1.00, Glucose 111 H Assessment & Plan - Problems (Diagnosis) (1) Chest pain, rule out acute myocardial infarction Current Visit: Yes Status: Acute (2) Diabetes Current Visit: Yes Status: Acute (3) Dyslipidemia Current Visit: Yes Status: Acute - Plan -High-sensitivity troponin -Cardiology consultation -Echocardiogram and stress test per cardiology recommendation -Repeat EKG -Work-up for other etiologies of cardiac chest pain if troponins remain negative -Lipid profile -Gas Generator Operator regarding modifying risk for cardiac disease Discharge Plan: Home Plan to discharge in: 24 Hours - Advance Directives Does patient have a Living Will: No Does patient have a Durable POA for Healthcare: No - Code Status/Comfort Care Code Status Assessed: Yes Code Status: Full Code Critical Care: No Time Spent Managing PTS Care (In Minutes): 45
--- NOTE | 2021-08-25 07:19 | P.DS ---
Discharge Date: 08/25/21 Disposition: ROUTINE DISCHARGE Discharge Condition: GOOD Reason for Admission: Rule out acute coronary syndrome - Problems (1) Chest pain, rule out acute myocardial infarction Current Visit: Yes Status: Acute (2) Diabetes Current Visit: Yes Status: Acute (3) Dyslipidemia Current Visit: Yes Status: Acute Brief History of Present Illness: Patient is a 56-year-old gentleman who came into the hospital with chest dis comfort. Pain was mainly in the epigastric and sternal region. There was no radiation to the chest pain. Patient states that he did not have diaphoresis. He was not nauseated. No vomiting. Patient was not short of breath. The states that they had a large meal and they were both left with a lot of gas. She believes he is bloated. However, he does have a strong family history of cardiac disease. Patient has hyperlipidemia and diabetes. His blood sugar is poorly controlled. He states he takes cholesterol medicine. He will be admitted to the hospital for further evaluation. Vital Signs/Physical Exam: Temp Pulse Resp BP Pulse Ox 98.6 F 81 19 121/75 98 08/25/21 07:05 08/25/21 07:05 08/25/21 07:05 08/25/21 07:05 08/25/21 07:05 General: Alert, In no apparent distress, Oriented x3 Laboratory Data at Discharge: WBC 9.7 K/uL (4.3-10.9) D 08/25/21 02:54 Hgb 13.4 g/dL (13.6-17.9) L 08/25/21 02:54 Hct 40.2 % (39.6-49.0) 08/25/21 02:54 Plt Count 265 K/uL (152-406) 08/25/21 02:54 Sodium 138 mmol/L (136-145) 08/25/21 02:54 Potassium 4.9 mmol/L (3.5-5.1) 08/25/21 02:54 BUN 8 mg/dL (7-18) 08/25/21 02:54 Creatinine 0.86 mg/dL (0.55-1.3) 08/25/21 02:54 Glucose 99 mg/dL (74-106) 08/25/21 02:54 Triglycerides 203 mg/dL (<150) H 08/25/21 02:54 Cholesterol 203 mg/dL (<200) H 08/25/21 02:54 HDL Cholesterol 46 mg/dL (40-60) 08/25/21 02:54 Cholesterol/HDL Ratio 4.41 08/25/21 02:54 Home Medications: Metoprolol Tartrate [Lopressor*] 50 mg PO BID #60 tab 08/25/21 New Medications: Metoprolol Tartrate [Lopressor*] 50 mg PO BID #60 tab Physician Discharge Instructions: -DC IV and DC home -Follow-up with PCP in 1 to 2 weeks -Follow-up with Cardiology in 1 to 2 weeks -Please call Dr. Knutson at [phone] if any questions regarding hospital stay -Please call nursing station at [phone] if any nursing or medication questions -Return to the emergency room if symptoms worsen Diet: AHA Activity: Ad larry Followup: NONE,NONE [Primary Care Provider] - Time spent managing pt's care (in minutes): 35
--- NOTE | 2021-08-25 07:55 | EKG ---
Test Date: 2021-08-24 Test Time: 15:15:47 Network Development Coordinator: HELADIO MEASUREMENT RESULTS: Intervals: Rate: 83 GA: 158 QRSD: 100 QT: 354 QTc: 415 [place]: P: 58 GA: 158 QRS: 33 T: -29 INTERPRETIVE STATEMENTS: Normal sinus rhythm T wave abnormality, consider inferior ischemia Abnormal ECG No previous ECG available for comparison Electronically Signed On 08-25-21 07:54:31 CDT by Wilfred Fuentes
[2021-08-25] MEDS ORDERED: METOPROLOL TAR 50 MG TAB ONE (08:42)
[2021-08-25] MEDS ORDERED: ASPIRIN EC 81 MG TAB PO ONE (08:42)
[2021-08-25] MEDS ORDERED: ENOXAPARIN 40 MG/0.4 ML SQ ONE (08:43)
[2021-08-25] MEDS ORDERED: REGADENOSON 0.4 MG/5 ML SYR IV ONE (08:54)
[2021-08-25] MEDS ORDERED: ENOXAPARIN 40 MG/0.4 ML SQ SCH (09:00)
[2021-08-25] MEDS ORDERED: ASPIRIN EC 81 MG TAB PO SCH (09:00)
[2021-08-25] MEDS: METOPROLOL TAR 50 MG TAB PO SCH (09:00)
--- NOTE | 2021-08-25 11:37 | RAD REPORT ---
EXAM DESCRIPTION: NM - Rest Stress Cardiac Imaging - 08/25/2021 11:32 am CLINICAL HISTORY: CP Chest pain. COMPARISON: No comparisons TECHNIQUE: The patient was administered approximately 10mCi of Tc 99m Sestamibi prior to resting SPE CT imaging of the heart. The patient was then administered approximately 30 mCi of Tc 99m Sestamibi f ollowing exercise or pharmacologic stress. Multiplanar SPECT images were reviewed. FINDINGS: No stress induced ischemic defect is seen to suggest stress induced ischemia. No fixed def ect is seen to suggest hibernating myocardium or scarred myocardium. The end diastolic volume is 105 ml, the end systolic volume is 46 ml, and the ejection fraction is 56 %. IMPRESSION: No stress induced ischemia.
--- NOTE | 2021-08-25 13:30 | CON ---
Date of Consultation: 08/25/2021 Reason For Consultation: Atypical chest pain. History Of Present Illness: Mr. Silvestre is a 56-year-old black male with no past medical history. He developed chest pressure in the 24 hours. He was lightheaded and dizzy. Denied any PND, orthopnea, pedal edema, palpitations, or syncope. Denied any fever or chills. Past Medical History: Negative. Allergies: NONE. Medications: At home are none. Family History: Negative. Social History: Negative. Review of Systems: Negative. Physical Examination: Vital Signs: Stable, afebrile. HEENT: Negative. Neck: Supple with no bruit. Chest: Clear. Cardiac: Normal. Abdomen: Benign. Extremities: Revealed no edema, clubbing, cyanosis. Diagnostic Data: All normal. Impression And Plan: Atypical chest pain with lightheadedness and dizziness. His lightheadedness an d dizziness certainly could be related to low blood pressure or bradycardia. His chest pain is in 24 hours' duration without other symptoms. He has normal EKG and normal troponin. I think it is proba wyatt gastroesophageal reflux disease. Nevertheless, echocardiogram and Lexiscan are pending. We will see what those show before making fur ther decisions. FARTUN/QI Voice ID: [id number] Report ID: [id number]
[2021-08-25 14:02] VITALS: BP 144/88; TEMP 98.3; BMI 35.6
--- NOTE | 2021-08-25 14:53 | TREADPHA ---
DX: CHEST PAIN Date of Study: 08/25/21 Ht: 5' 6 " Wt: 221 lb 0 oz Consulting Physician: DENISE MEDICATIONS: TYLENOL, XANAX, ASPIRIN, LOVENOX, LOPRESSOR, MORPHINE, NO HOME MEDICATIONS HISTORY: 56 YEAR OLD MALE WITH COMPLAINTS OF CHEST PAIN. DENIES MEDICAL HISTORY. DENIES SMOKING, DRINKING, DRUG USE. REPORTS FAMILY HISTORY OF CORONARY ARTERY DISEASE PHYSICIAL EXAMINATION: RESTING B.P.: 121/79 RESTING H.R.: 68 RESTING EKG: WITHIN NORMAL LIMITS PROTOCOL: LEXISCAN EXERCISE TIME: 3;30 B.P. AT PEAK STRESS: 121/77 IMPRESSION: LEXISCAN INJECTED. CARDIOLITE GIVEN PER PROTOCOL. SEE NUCLEAR MEDICINE REPORT. PATIENT COMPLAINTS OF CHEST TIGHTNESS. NO PREMATURE VENTRICULAR COMPLEXES, PREMATURE ATRIAL COMPLEXES, SUPRA VENTRICULAR TACHYCARDIA, VENTRICULAR TACHYCARDIA NOTED. NO CHANGES WITH LEXISCAN ON EKG.
--- NOTE | 2021-08-25 14:55 | ECHO ---
HEIGHT: 5 ft 6 in WEIGHT: 221 lb 0 oz DATE OF STUDY: 08/25/[address]: Keila Knutson MD 2-DIMENSIONAL: YES M.MODE: YES DOPPLER: YES COLOR FLOW: YES TDS: NO PORTABLE: NO DEFINITY: NO BUBBLE STUDY: NO DIAGNOSIS: CHEST PAIN CARDIAC HISTORY: CATHERIZATION: NO SURGERY: NO PROSTHETIC VALVE: NO PACEMAKER: NO MEASUREMENTS (cm) DIASTOLIC (NORMALS) SYSTOLIC (NORMALS) IVSd 1.1 (0.6-1.2) LA Diam 3.0 (1.9-4.0) LVEF 60% LVIDd 3.9 (3.5-5.7) LVIDs 2.7 (2.0-3.5) %FS 31% LVPWd 1.0 (0.6-1.2) Ao Diam 2.7 (2.0-3.7) 2 DIMENSIONAL ASSESSMENT: RIGHT ATRIUM: NORMAL LEFT ATRIUM: NORMAL RIGHT VENTRICLE: NORMAL LEFT VENTRICLE: NORMAL TRICUSPID VALVE: MILD TRICUSPID REGURGITATION MITRAL VALVE: MILD MITRAL REGURGITATION PULMONIC VALVE: NORMAL AORTIC VALVE: NORMAL PERICARDIAL EFFUSION: NONE AORTIC ROOT: NORMAL LEFT VENTRICULAR WALL MOTION: NORMAL. DOPPLER/COLOR FLOW: SEE BELOW. COMMENTS: NORMAL LEFT VENTRICULAR EJECTION FRACTION 55-60%. NORMAL WALL MOTION. MILD MITRAL AND TRICUSPID REGURGITATION. NORMAL DIASTOLIC FUNCTION. TECHNOLOGIST: ALAINA STONE
== END 2021-08-25 14:10 | disposition home or self-care (01) ==
LOC: ER 11:16 → ERHOLD 15:21 → 2ND 08-25 10:53
PROVIDERS: ADMIT Hospitalist; ATTEND Hospitalist
DX: R07.89 Other chest pain (principal); E11.9 Type 2 diabetes mellitus without complications; E78.5 Hyperlipidemia, unspecified; R42 Dizziness and giddiness; Z20.822 Contact with and (suspected) exposure to COVID-19; Z82.49 Family history of ischemic heart disease and other diseases of the circulatory system
CPT/HCPCS: 36415; 71045; 78452; 80048; 80061; 84484; 85025; 93005; 93017; 93306; 96374; 96375; 99285; A9500; G0378; J1644; J1650; J2270; J2405; J2785; U0003